=== PATIENT | male | born 1975 | race Caucasian/White ===

== ENCOUNTER 2019-08-20 14:01 | Emergency (ER) | payer MEDICAID ==
[~2019-08-20] VITALS: Ht 185.4 cm; Wt 80.8 kg
[~2019-08-20 14:01] MED LIST: ALPR0.25 PO; LITH300C PO; OLAN2.5T3 PO
[2019-08-20 14:16] VITALS: BP 113/56
--- NOTE | 2019-08-20 17:15 | NUR ---
[email or web address] [email or web address]@[phone]
--- NOTE | 2019-08-20 17:24 | NUR ---
PSYCHOLOGIST EDUCATIONAL: NOT IN LOBBY
--- NOTE | 2019-08-20 17:39 | NUR ---
[email or web address]@[phone]
--- NOTE | 2019-08-20 17:44 | NUR ---
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
== END 2019-08-20 17:46 | disposition left against medical advice (07) ==
LOC: ED 17:30
DX: R42 Dizziness and giddiness (principal); Z53.21 Procedure and treatment not carried out due to patient leaving prior to being seen by health care provider
CPT/HCPCS: 93005

== ENCOUNTER 2019-08-21 12:46 | Emergency (ER) | payer MEDICAID ==
[~2019-08-21] VITALS: Ht 185.4 cm; Wt 80.6 kg
--- NOTE | 2019-08-21 14:09 | NUR ---
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 NO ACUTE DISTRESS NOTED.
--- NOTE | 2019-08-21 14:10 | NUR ---
PT HAVING DIZZY SPELLS FOR ABOUT 4 DAYS. REPORTS THAT STEAM WHILE COOKING MAKES IT WORSE. PT REPORTS STANDING QHUICKLY AFFECTS HIM WELL. per triage note pt walked in the rm with stable gait even though pt feels dizziness kelby shaver at bed side for er eval now
[2019-08-21] MEDS ORDERED: SODIUM CHLORIDE 0.9% 1,000ML IVBOLUS ONE (14:30)
[2019-08-21] MEDS ORDERED: SODIUM CHLORIDE FLUSH 10ML SYR IVF ONE (14:30)
[2019-08-21] MEDS ORDERED: MECLIZINE CHEWABLE 25 MG TAB PO ONE (14:30)
[2019-08-21] MEDS ORDERED: MECLIZINE CHEWABLE 25 MG TAB ONE (14:44)
--- NOTE | 2019-08-21 14:48 | NUR ---
pt medicated per emar. pt tolerated well.
[2019-08-21 14:50] VITALS: BP 97/66
--- NOTE | 2019-08-21 14:51 | NUR ---
Patient given discharge instructions and they have confirmed that they understand the instructions. Patient ambulatory with steady gait.
== END 2019-08-21 14:52 | disposition home or self-care (01) ==
LOC: ED 14:41
DX: R42 Dizziness and giddiness (principal); R94.31 Abnormal electrocardiogram [ECG] [EKG]
CPT/HCPCS: 93005; 99283

== ENCOUNTER 2019-08-27 12:16 | Emergency (ER) | payer MEDICAID ==
[~2019-08-27] VITALS: Ht 185.4 cm; Wt 81.8 kg
[2019-08-27 12:24] VITALS: BP 105/67
== END 2019-08-27 12:39 | disposition home or self-care (01) ==
LOC: ED 12:30
DX: B86 Scabies (principal)
CPT/HCPCS: 99283